=== PATIENT | female | born 1980 | race Two or more races ===

== ENCOUNTER 2022-10-10 18:38 | Emergency (ER) | payer MEDICAID ==
[~2022-10-10] VITALS: Ht 167.6 cm; Wt 93.1 kg
[2022-10-10 19:44] LABS: Urine Bacteria FEW /hpf (None Seen); Urine Blood 1+ /uL (Negative); Urine Specific Gravity 1.039 (1.001-1.035); Urine WBC 4 /hpf (0 - 5)
[2022-10-10] MEDS ORDERED: FLUCONAZOLE 100 MG TAB PO ONE ×3 (20:00→20:30)
[2022-10-10 20:49] LABS: BUN/Creatinine Ratio 18.8 (10.0-20.0); Calcium 8.8 mg/dL (8.5-10.1); Potassium 3.6 mmol/L (3.5-5.1)
[2022-10-10] MEDS ORDERED: GLYB5TAB8 PO (22:14)
[2022-10-10 22:46] VITALS: BP 119/72
== END 2022-10-10 22:46 | disposition home or self-care (01) ==
LOC: ER 18:47
DX: E11.65 Type 2 diabetes mellitus with hyperglycemia (principal); Z98.890 Other specified postprocedural states
CPT/HCPCS: 36415; 80048; 81001